=== PATIENT | female | born 1960 | race African-American/Black ===

== ENCOUNTER 2020-05-02 14:32 | Inpatient (IN) | payer MEDICAID ==
[~2020-05-02] VITALS: Ht 162.6 cm; Wt 86.2 kg
[2020-05-02 15:20] VITALS: BP 125/86
[2020-05-02 15:42] LABS: BASOPHILS % (AUTO) 1.5 % (0.0-2.0); EOSINOPHILS % (AUTO) 0.1 % (0.0-3.0); HEMATOCRIT 44.3 % (37.0-47.0); HEMOGLOBIN 14.2 G/DL (12.0-16.0); LYMPHOCYTES % (AUTO) 9.1 % (20.0-45.0); MEAN CORPUSCULAR VOLUME 80 FL (80-99); MONOCYTES % (AUTO) 13.1 % (1.0-10.0); NEUTROPHILS % (AUTO) 76.2 % (45.0-75.0); PLATELET COUNT 282 K/UL (150-450); RED BLOOD COUNT 5.54 M/UL (4.20-5.40); RED CELL DISTRIBUTION WIDTH 12.9 % (11.6-14.8); WHITE BLOOD COUNT 6.7 K/UL (4.8-10.8)
[2020-05-02 15:53] LABS: ANION GAP 11 mmol/L (5-15); BLOOD UREA NITROGEN 9 mg/dL (7-18); CALCIUM 8.4 MG/DL (8.5-10.1); CARBON DIOXIDE 22 MMOL/L (21-32); CHLORIDE 101 MMOL/L (98-107); CREATININE 0.8 MG/DL (0.55-1.30); POTASSIUM 3.3 MMOL/L (3.5-5.1); SODIUM 134 MMOL/L (136-145)
[2020-05-02 15:58] LABS: ALANINE AMINOTRANSFERASE 175 U/L (12-78); ALBUMIN 2.6 G/DL (3.4-5.0); ALBUMIN/GLOBULIN RATIO 0.6 (1.0-2.7); ALKALINE PHOSPHATASE 111 U/L (46-116); ASPARTATE AMINO TRANSFERASE 309 U/L (15-37); BILIRUBIN,TOTAL 0.7 MG/DL (0.2-1.0)
--- NOTE | 2020-05-02 16:40 | Emergency Room Report ---
History of Present Illness General Chief Complaint: Flu Like Symptoms Source: Patient (Lelo Walker) Present Illness HPI 60-year-old female presents to the emergency department complaining of worsening of her generalized weakness and shortness of breath. Patient reports that her symptoms began April 18. Patient states that after no improvement at home she went to [facility] in [place] emergency department on 26 April and was admitted. Patient states that she was just discharged yesterday. Patient reports that they were concerned about some elevated labs but the patient is not sure what they were. She denies chest pain. She does report initial cough. She reports she has had multiple Covid test all of which were negative. She reports chills but denies fevers. She denies past medical history. She reports that she was given Lidoderm patches and antibiotics at [facility]. Patient reports that overnight her symptoms have gotten worse and she called 911 today. (Lelo Walker) Allergies: Coded Allergies: AZITHROMYCIN (Unverified Allergy, Unknown, 05/02/20) COVID-19 Screening Contact w/high risk pt: No Experienced COVID-19 symptoms?: No COVID-19 Testing performed MOLD FORMS BUILDER: No (Lelo Walker) Patient History Past Medical History: see triage record Past Surgical History: none Pertinent Family History: none Now: No Reviewed Nursing Documentation: PMH: Agreed; PSxH: Agreed (Lelo Walker) Nursing Documentation-PMH Past Medical History: No Stated History (Lleo Walker) Review of Systems All Other Systems: negative except mentioned in HPI (Lelo Walker) Physical Exam Vital Signs Date Time Temp Pulse Resp B/P (MAP) Pulse Ox O2 Delivery O2 Flow Rate FiO2 05/02/20 14:24 98.1 125 16 126/82 (97) 98 Room Air 05/02/20 15:20 97 Sp02 EP Interpretation: reviewed, normal General Appearance: no apparent distress, alert, GCS 15, non-toxic Head: normocephalic, atraumatic Eyes: bilateral eye normal inspection, bilateral eye PERRL ENT: hearing grossly normal, normal voice Neck: full range of motion Respiratory: lungs clear, normal breath sounds, no wheezing, other - PT. with difficulty speaking full sentences. Cardiovascular #1: regular rate, rhythm, no edema, normal capillary refill - Slow cap refill/ 3-4 secs Gastrointestinal: normal bowel sounds, non tender, soft Rectal: deferred Genitourinary: normal inspection Musculoskeletal: back normal, normal range of motion, gait/station normal, non- tender Neurologic: alert, motor strength/tone normal, oriented x3, sensory intact, responsive, speech normal Psychiatric: judgement/insight normal Lymphatic: no adenopathy (Lelo Walker) Procedures Critical Care Time Critical Care Time Pt. presentation to the ED mandated critical care. Pt. required immediate intervention to assess the risks and attempt to prevent cardiovascular compromise that could lead to . Critical care time is 60 minutes excluding any reportable procedure. Critical care time included evaluation, multiple reevaluation, looking at old charts, interpreting laborat ory and diagnostic data, discussing case with patient and family and consultants, and charting. (Lelo Walker) Medical Decision Making PA Attestation Dr. Weston Is my supervising Physician whom patient management has been discussed with. (Lelo Walker) Diagnostic Impression: Primary Impression: NSTEMI (non-ST elevated myocardial infarction) Additional Impression: Elevated d-dimer ER Course 60-year-old female presents to the emergency department complaining of worsening of her generalized weakness and shortness of breath. Patient reports that her symptoms began April 18. Patient states that after no improvement at home she went to [facility] in [place] emergency department on 26 April and was admitted. Patient states that she was just discharged yesterday. Patient reports that they were concerned about some elevated labs but the patient is not sure what they were. She denies chest pain. She does report initial cough. She reports she has had multiple Covid test all of which were negative. She reports chills but denies fevers. She denies past medical history. She reports that she was given Lidoderm patches and antibiotics at [facility]. Patient reports that overnight her symptoms have gotten worse and she called 911 today. Ddx considered but are not limited to : MS, MG, guilan barre, MT, drug intoxication, hypovolemia, infection, rhabdomylosis, ETOH, CVA/TIA, NMS, CHF, Seizures, Cardiac outflow obstruction, QT-prolongation, Brugada, or Anemia just to name a few. Vital signs: are WNL, pt. is afebrile H&PE are most consistent with NSTEMI ORDERS: -CBC- unremarkable -CMP -- Elevated LFT -Troponin: 0.236 -D-Dimer: 1.05 -PT: 11.4, - INR: 1.0 -UA EKG: abnormal- Sinus Tachycardia with inverted T wave in ischemic pattern in inferior and anterolateral leads. -COVID -19: Negative -CTA Chest: due to elevated D-Dimer---- PT> Declines IV Contrast. ED INTERVENTIONS: - 325 ASA - NS 500cc IV -Heparin 5000 units bolus. Pt. is not stable for transport at this time. DISPOSITION: at this time pt. will be admitted to Dr. Montoya for NSTEMI Vs PE. Dr. Montoya agreed to admit the pt. and to continue pt. care management. Labs Test 05/02/20 15:11 White Blood Count 6.7 K/UL (4.8-10.8) Red Blood Count 5.54 M/UL (4.20-5.40) Hemoglobin 14.2 G/DL (12.0-16.0) Hematocrit 44.3 % (37.0-47.0) Mean Corpuscular Volume 80 FL (80-99) Mean Corpuscular Hemoglobin 25.7 PG (27.0-31.0) Mean Corpuscular Hemoglobin Concent 32.1 G/DL (32.0-36.0) Red Cell Distribution Width 12.9 % (11.6-14.8) Platelet Count 282 K/UL (150-450) Mean Platelet Volume 7.5 FL (6.5-10.1) Neutrophils (%) (Auto) 76.2 % (45.0-75.0) Lymphocytes (%) (Auto) 9.1 % (20.0-45.0) Monocytes (%) (Auto) 13.1 % (1.0-10.0) Eosinophils (%) (Auto) 0.1 % (0.0-3.0) Basophils (%) (Auto) 1.5 % (0.0-2.0) Prothrombin Time 11.4 SEC (9.30-11.50) Prothromb Time International Ratio 1.0 (0.9-1.1) Activated Partial Thromboplast Time 35 SEC (23-33) D-Dimer 1.05 mg/L FEU (0.00-0.49) Sodium Level 134 MMOL/L (136-145) Potassium Level 3.3 MMOL/L (3.5-5.1) Chloride Level 101 MMOL/L (98-107) Carbon Dioxide Level 22 MMOL/L (21-32) Anion Gap 11 mmol/L (5-15) Blood Urea Nitrogen 9 mg/dL (7-18) Creatinine 0.8 MG/DL (0.55-1.30) Estimat Glomerular Filtration Rate > 60 mL/min (>60) Glucose Level 119 MG/DL (74-106) Calcium Level 8.4 MG/DL (8.5-10.1) Total Bilirubin 0.7 MG/DL (0.2-1.0) Aspartate Amino Transf (AST/SGOT) 309 U/L (15-37) Alanine Aminotransferase (ALT/SGPT) 175 U/L (12-78) Alkaline Phosphatase 111 U/L (46-116) Troponin I 0.236 ng/mL (0.000-0.056) Total Protein 7.2 G/DL (6.4-8.2) Albumin 2.6 G/DL (3.4-5.0) Globulin 4.6 g/dL Albumin/Globulin Ratio 0.6 (1.0-2.7) (Lelo Walker) ER Course I Saw this patient with the PA. I agree that the patient needs to be admitted for further treatment and evaluation. I spoke with . Due to the p atient's elevated troponin and possible PE and elevated D-dimer and EKG changes I do not believe that the patient is stable for transfer at this time. Patient has been started on heparin. VQ scan is pending at the time of admission. (Shala Weston M.D.) EKG Diagnostic Results Troponin ordered: Yes When was troponin ordered?: May 02, 2020 EKG Time: 15:19 Rate: tachycardiac - 104 bpm Rhythm: NSR ST Segments: other - inverted t-waves in inferior and anterolateral leads. No ST elevation. ASA given to the pt in ED: Yes PA Scribe Text This Interpretation was scribed by SHADE Walker. (Lelo Walker) Chest X-Ray Diagnostic Results Chest X-Ray Diagnostic Results : Chest X-Ray Ordered: Yes # of Views/Limited/Complete: 1 View Indication: Shortness of Breath EP Interpretation: Yes SHADE Xray: Interpretation reviewed, by supervising MD, and agrees with findings. Interpretation: no consolidation, no effusion, no pneumothorax Impression: No acute disease Electronically Signed by: Lelo Walker PA-C (Lelo Walker) Last Vital Signs Date Time Temp Pulse Resp B/P (MAP) Pulse Ox O2 Delivery O2 Flow Rate FiO2 05/02/20 15:20 98.1 103 18 125/86 97 Room Air 05/02/20 15:20 97 (Lelo Walker) Disposition: ADMITTED INPATIENT Condition: Serious Referrals: [facility],REFERR[facility] (PCP) Lelo Walker May 02, 2020 16:40 Shala Weston M.D. May 02, 2020 20:36
[2020-05-02] MEDS ORDERED: Omnipaque 350 100ml vial INJ PRN (17:00)
[2020-05-02] MEDS ORDERED: Heparin 5000 units/ml inj IV ONE (17:45)
[2020-05-02] MEDS ORDERED: Heparin 25,000u/D5W 500ml 500 ML IV SCH (17:45)
--- NOTE | 2020-05-02 17:59 | Diagnostic Imaging Report ---
Indication: Chest pain Technique: One view of the chest Comparison: 07/10/2006 Findings: Lungs and pleural spaces are clear. The heart size is normal. No significant change Impression: No acute process
[2020-05-02 18:00] VITALS: BP 131/82
[2020-05-03 01:18] LABS: INR 1.2 (0.9-1.1)
[2020-05-03 01:21] LABS: PARTIAL THROMBOPLASTIN TIME > 150 SEC (23-33)
[2020-05-03] MEDS ORDERED: Heparin 25,000u/D5W 500ml 500 ML IV SCH ×2 (02:30→09:45)
[2020-05-03 08:00] VITALS: BP 120/70
[2020-05-03] MEDS: Aspirin EC 81mg tab ORAL SCH (09:00)
--- NOTE | 2020-05-03 11:45 | History and Physical Report ---
DATE OF ADMISSION: 05/02/2020 HISTORY OF PRESENT ILLNESS: This is a 60-year-old female who came to the hospital with shortness of breath, generalized weakness. The patient is a very poor historian. She states she has been admitted to the [facility] for 5 days from 04/26/2020 to 05/01/2020. She states she has been unwell since late March. She states that she was discharged a few days ago with Mucinex and lidocaine patch. She states she had a completely negative workup but was not told about her diagnoses. The patient is a very poor historian. She denies any previous history except for history of prediabetes many years ago. PAST MEDICAL HISTORY: Prediabetes. PAST SURGICAL HISTORY: Umbilical hernia repair. ALLERGIES: . HOME MEDICATIONS: Mucinex and lidocaine patches. SOCIAL HISTORY: Denies smoking tobacco. Lives at home with family. PHYSICAL EXAMINATION: GENERAL: Reveals a 60-year-old female. VITAL SIGNS: Blood pressure 120/70, heart rate 104, respirations are 20, O2 saturation 98% on room air. HEENT: Unremarkable. CHEST: Clear breath sounds. ABDOMEN: Soft. EXTREMITIES: There is no edema. NEUROLOGIC: Nonfocal. LABORATORY DATA: Lab testing shows normal CBC. BMP notable for troponin 0.234 . AST and ALT are both elevated. Glucose 119, sodium 134, potassium 3.3. Coags show elevated D-dimer 1.05. IMPRESSION: 1. Non-STEMI. 2. Generalized weakness/malaise. 3. Shortness of breath. DISCUSSION: At this time, my suspicion for venous thromboembolic process is low. She is currently asymptomatic from a cardiac standpoint; therefore, we will discontinue heparin drip. Continue other home medications including aspirin. We will follow as legal administrative assistant. We will consult Cardiology. We will need to obtain old records. Abran Montoya M.D. DR: Sarah JOB#: [id number] CC:
[2020-05-03 12:00] VITALS: BP 118/68
[2020-05-03 16:00] VITALS: BP 124/64
--- NOTE | 2020-05-03 18:07 | Cardiology Report ---
APPROVED REPORT EXAM: Two-dimensional and M-mode echocardiogram with Doppler and color Doppler. INDICATION ACF M-Mode DIMENSIONS IVSd1.0 (0.7-1.1cm)Left Atrium (MM)3.1 (1.6-4.0cm) LVDd3.9 (3.5-5.6cm)Aortic Root3.1 (2.0-3.7cm) PWd1.0 (0.7-1.1cm)Aortic Cusp Exc.1.7 (1.5-2.0cm) IVSs1.3 cmEPSS0.8 (>1.0cm) LVDs2.7 (2.5-4.0cm) PWs1.8 cm Other Information Technically limited study due to pt's position. <Conclusion> Normal left ventricular chamber size, systolic function and wall motion to extent visualized. Left ventricular ejection fraction estimated to be 55-60 %. No evidence of left ventricular hypertrophy. Anterior Echo-free space, may be due to pericardial fat or effusion. All other cardiac chamber sizes are within normal limits. Focal aortic valve sclerosis with adequate cusp excursion. Thickened mitral valve leaflets with normal excursion. Mitral annulus and aortic root calcification. Pulmonic valve not well visualized. Normal tricuspid valve structure. Subcostal view unobtainable. IVC at normal size with physiologic collapse. A color flow and spectral Doppler study was performed and revealed: No aortic regurgitation. Trace mitral regurgitation. Mitral diastolic velocities suggest mild diastolic dysfunction (Grade I). Trace tricuspid regurgitation. Tricuspid systolic velocities suggests peak right ventricular systolic pressure of 8 mmHg. No pulmonic regurgitation present.
--- NOTE | 2020-05-03 18:22 | Cardiology Report ---
APPROVED REPORT EKG Measurement Heart [id number] <Conclusion> Sinus tachycardia T wave abnormality, consider inferior ischemia T wave abnormality, consider anterolateral ischemia Abnormal ECG
[2020-05-03 20:00] VITALS: BP 126/70
[2020-05-04] VITALS: BP 123/71
[2020-05-04 04:00] VITALS: BP 121/73
[2020-05-04 07:33] LABS: BASOPHILS % (AUTO) 0.8 % (0.0-2.0); EOSINOPHILS % (AUTO) 0.6 % (0.0-3.0); HEMATOCRIT 42.7 % (37.0-47.0); HEMOGLOBIN 13.6 G/DL (12.0-16.0); LYMPHOCYTES % (AUTO) 8.2 % (20.0-45.0); MEAN CORPUSCULAR VOLUME 83 FL (80-99); MONOCYTES % (AUTO) 19.6 % (1.0-10.0); NEUTROPHILS % (AUTO) 70.9 % (45.0-75.0); PLATELET COUNT 278 K/UL (150-450); RED BLOOD COUNT 5.15 M/UL (4.20-5.40); RED CELL DISTRIBUTION WIDTH 12.7 % (11.6-14.8); WHITE BLOOD COUNT 6.6 K/UL (4.8-10.8)
[2020-05-04 07:42] LABS: ALANINE AMINOTRANSFERASE 123 U/L (12-78); ALBUMIN 2.4 G/DL (3.4-5.0); ALBUMIN/GLOBULIN RATIO 0.5 (1.0-2.7); ALKALINE PHOSPHATASE 104 U/L (46-116); ASPARTATE AMINO TRANSFERASE 208 U/L (15-37); BILIRUBIN,TOTAL 0.6 MG/DL (0.2-1.0); BLOOD UREA NITROGEN 8 mg/dL (7-18); CALCIUM 8.3 MG/DL (8.5-10.1); CARBON DIOXIDE 25 MMOL/L (21-32); CHLORIDE 100 MMOL/L (98-107); CREATININE 0.8 MG/DL (0.55-1.30); POTASSIUM 3.1 MMOL/L (3.5-5.1); SODIUM 135 MMOL/L (136-145)
[2020-05-04 08:00] VITALS: BP 111/68
[2020-05-04] MEDS: Aspirin EC 81mg tab ORAL SCH (09:08)
--- NOTE | 2020-05-04 10:09 | Pulmonology Progress Note ---
Subjective Interval Events: Continues to report chest heaviness Constitutional: Reports: no symptoms HEENT: Repors: no symptoms Respiratory: Reports: no symptoms Cardiovascular: Reports: no symptoms Gastrointestinal/Abdominal: Reports: no symptoms Genitourinary: Reports: no symptoms Neurologic: Reports: no symptoms Allergies: Coded Allergies: AZITHROMYCIN (Unverified Allergy, Unknown, 05/02/20) Objective Last 24 Hour Vital Signs Date Time Temp Pulse Resp B/P (MAP) Pulse Ox O2 Delivery O2 Flow Rate FiO2 05/04/20 08:24 Room Air 05/04/20 04:00 108 05/04/20 04:00 97.6 105 17 121/73 (89) 98 05/04/20 00:00 100 05/04/20 00:00 98.2 103 20 123/71 (88) 98 05/03/20 21:00 Room Air 05/03/20 20:00 97.9 100 16 126/70 (88) 97 05/03/20 20:00 102 05/03/20 19:25 97.8 05/03/20 16:00 109 05/03/20 16:00 97.8 105 18 124/64 (84) 99 05/03/20 12:00 97.8 102 18 118/68 (85) 99 05/03/20 12:00 112 Intake and Output 05/03/20 05/04/20 19:00 07:00 Intake Total 360 ml 500 ml Balance 360 ml 500 ml Intake Oral 360 ml 500 ml # Voids 3 3 # Bowel Movements 2 General Appearance: no acute distress HEENT: normocephalic Respiratory: chest wall non-tender, lungs clear Cardiovascular: normal peripheral pulses Abdomen: normal bowel sounds Microbiology Date/Time Source Procedure Growth Status 05/02/20 15:15 Nasopharynx SARS-CoV-2 RdRp Gene Assay - Final Complete Laboratory Tests 05/04/20 05:58: White Blood Count 6.6, Red Blood Count 5.15, Hemoglobin 13.6, Hematocrit 42.7, Mean Corpuscular Volume 83, Mean Corpuscular Hemoglobin 26.4L, Mean Corpuscular Hemoglobin Concent 31.8L, Red Cell Distribution Width 12.7, Platelet Count 278, Mean Platelet Volume 7.6, Neutrophils (%) (Auto) 70.9, Lymphocytes (%) (Auto) 8.2L, Monocytes (%) (Auto) 19.6H, Eosinophils (%) (Auto) 0.6, Basophils (%) (Auto) 0.8, Sodium Level 135L, Potassium Level 3.1L, Chloride Level 100, Carbon Dioxide Level 25, Blood Urea Nitrogen 8, Creatinine 0.8, Estimat Glomerular Filtration Rate > 60, Glucose Level 111H, Calcium Level 8.3L, Magnesium Level 2.0, Total Bilirubin 0.6, Aspartate Amino Transf (AST/SGOT) 208H, Alanine Aminotransferase (ALT/SGPT) 123H, Alkaline Phosphatase 104, Troponin I 0.178H, Total Protein 6.8, Albumin 2.4L, Globulin 4.4, Albumin/Globulin Ratio 0.5L Current Medications Medications (Trade) Dose Ordered Sig/Denise Route PRN Reason Start Time Stop Time Status Last Admin Dose Admin Acetaminophen (Tylenol) 650 mg Q4H PRN ORAL Pain Scale 1-3/ Temp >100.4F 05/02/20 23:45 06/01/20 23:44 05/03/20 18:55 Aspirin (Ecotrin) 81 mg DAILY ORAL 05/03/20 09:00 06/17/20 08:59 05/04/20 09:08 Iohexol (Omnipaque 350 100ml) 100 ml NOW PRN INJ Radiology Procedure 05/02/20 17:00 05/04/20 16:59 Ondansetron HCl (Zofran) 4 mg Q6H PRN IVP Nausea & Vomiting 05/02/20 23:45 06/01/20 23:44 Potassium Chloride (K-Dur) 40 meq ONCE ORAL 05/04/20 09:15 05/04/20 10:15 05/04/20 09:27 Assessment/Plan Assessment/Plan IMPRESSION: 1. Non-STEMI. 2. Generalized weakness/malaise. 3. Shortness of breath. DISCUSSION: At this time, my suspicion for venous thromboembolic process is low. She is continuing to report chest pain. Tropnins still elevated Will resume anticaogulation Will request tranasfer for heart cath [place] Omar Syed MD May 04, 2020 10:09
--- NOTE | 2020-05-04 10:10 | General Progress Note ---
Advance Care Planning Advance Care Planning Advance Care Planning Date of Discussion: 05/04/20 A [id number] discussion with the patient regarding the patient's advanced care planning took place during this hospitalization on the above date. The discussion included the explanation and discussion of advance directives and associated forms/documents, as well as the patient's current code status. We also discussed at length the patient's medical conditions (both acute and chronic), general prognosis, treatment options, and goals of care. The following summarizes the discussion:Full code; needs heart cath. Advance Care Planning/Goals of Care: - Will attempt to fill out an AD and/or POLST with the patient prior to discharge, if not already completed - Continue current evaluation and management of any acute and chronic medical issues - Will continue to support the patient/family - Will continue to discuss both short- and long-term goals of care DPOA-HC/Surrogate Decision Maker: None currently appointed Code Status: Full Code Advanced Care Planning Forms/Documents Completed: Deferred until later encounter A total of 31 minutes was spent on this discussion, including counseling, answering questions, and completing, if any, pertinent advanced care planning forms/documents. Time of note may not reflect time of encounter. Abran Montoya MD May 04, 2020 10:10
[2020-05-04] MEDS ORDERED: LOVENOX10 M3 SUBQ (10:11)
[2020-05-04] MEDS ORDERED: ASPIRIN EC81 MG ORAL (10:11)
[2020-05-04] MEDS: Enoxaparin 100mg Inj SUBQ SCH ×2 (10:54→21:00)
[2020-05-04 12:00] VITALS: BP 123/80
--- NOTE | 2020-05-04 14:45 | Consultation ---
DATE OF CONSULTATION: 05/04/2020 INTERVENTIONAL CARDIOLOGY CONSULTATION NOTE SUPERVISING PHYSICIAN: Pritesh Collado MD. LOCATION: Telemetry. CHIEF COMPLAINT: Chest pain. HISTORY OF PRESENT ILLNESS: This is a 60-year-old black female, transferred from [facility] yesterday with complaints of chest pain and shortness of breath. The patient has no history of prior TN or PCI, no known diagnosis of congestive heart failure. On exam today, the patient is still complaining of chest pain, chest pressure, exertional, relieved by rest and shortness of breath, not exacerbated by lying flat. Troponin 0.2 x2, 0.17 this morning. EKG, sinus rhythm, T-wave inversions. No ST elevations or depressions. The patient had been on heparin drip at [facility] that will be restarted today. The patient is a poor historian. She denies taking medications for any chronic illnesses. Per EMR, she is prediabetic, vitals stable. Laboratories remarkable for hypokalemia, troponin elevation, AST and ALT elevation. PAST MEDICAL HISTORY: Prediabetes. PAST SURGICAL HISTORY: Umbilical hernia repair. ALLERGIES: No known drug allergies. HOME MEDICATIONS: None. SOCIAL HISTORY: Nonsmoker. Lives at home with family. Denies alcohol or street drug use or abuse. REVIEW OF SYSTEMS: Complains of chest pain, shortness of breath. Denies nausea, vomiting, fever, chills, abdominal pain, or active bleeding. Denies leg edema. LABORATORY REVIEW: As per HPI above. IMAGING REVIEW: Echocardiogram, ejection fraction 55%. No significant valvular disease. EKG, sinus rhythm, T-wave inversions, no ST elevation or depression. Chest x-ray, clear lungs. PHYSICAL EXAMINATION: VITAL SIGNS: Blood pressure 120/74, heart rate 80, respiratory rate 18, and O2 saturation 98% on room air. GENERAL: No acute distress, calm, cooperative. HEENT: EOMs intact. Nonicteric. NECK: No JVD. No bruit. CHEST: Symmetrical expansion. Clear to auscultation bilaterally. CARDIOVASCULAR: Rate and rhythm regular. S1 and S2. No significant murmur on auscultation. No rub. No gallop. ABDOMEN: Soft, nondistended. EXTREMITIES: No significant edema. Palpable pedal pulses. Warm. No venous stasis skin changes. NEUROLOGIC: Grossly nonfocal. ASSESSMENT AND PLAN: 1. NSTEMI. 2. Chest pain, exertional. 3. Troponinemia. Troponin 0.2 x2, 0.17 this morning. 4. Shortness of breath. 5. Heart failure, preserved ejection fraction. EF 55%. Mild diastolic dysfunction, compensated. Chest x-ray, clear lungs. 6. Prediabetes. PLAN: The patient will be restarted on heparin drip. Transfer for likely cardiac catheterization. Currently, vitals are stable. The patient is still complaining of chest pain and with troponin elevation, not a candidate for Lexiscan at this facility. We will continue to monitor prior to transfer and follow up with Cardiology. The above assessment and plan was discussed with Dr. Collado and agreed to as above. Pritesh Collado M.D. Isabel Suggs PA-C DR: BECCA JOB#: [id number] CC:
[2020-05-04 16:00] VITALS: BP 126/68
[2020-05-04 20:00] VITALS: BP 115/71
--- NOTE | 2020-05-06 08:37 | Discharge Summary ---
Discharge Summary Discharge Summary _ DATE OF ADMISSION: 05/02/2020 DATE OF DISCHARGE: 05/04/2020 DISCHARGED BY: Dr. Montoya REASON FOR ADMISSION: 60 years old female presented to emergency department with shortness of breath and generalized weakness. Symptoms started more than a week ago. Patient was hospitalized at [facility]. Patient was not sure for what she was treated , but stated that she got some antibiotic . She initially declined chest pain . She reported initial cough . She reported that she had multiply Covid testing which were negative. Patient denied past medical history . Upon evaluation patient had vital signs revealed tachycardia with heart rate 125 , otherwise patient was afebrile and pulse oximetry was stable on room air. Troponin elevated 0.236. EKG revealed inverted T waves in inferior and anterolateral leads. No ST elevation. Chest x-ray revealed no acute cardiopulmonary pathology. Stable hemoglobin and hematocrit , no leukocytosis. Potassium 3.3. Stable electrolytes her electrolytes and renal parameters Glucose 119 D-dimer .1.05. Rapid COVID-19 was negative. Noted elevated LFT : AST 309 , ALT 175. Patient declined IV contrast to perform CTA of the chest. In emergency department patient receive IV fluids and started on full anticoagulation. Patient admitted to telemetry floor for further management. CONSULTANTS: nurse receptionist Dr. Collado [facility]SE: Patient admitted to telemetry floor. Potassium was replaced. Serial troponin remained elevated: second troponin 0.219, the last troponin 0.178. Echocardiogram revealed preserved ejection fraction 55 to 60%. No evidence of left ventricular hypertrophy. Right ventricular systolic pressure of 8. Mild diastolic dysfunction grade 1. Planning And Analysis Manager recommended continue full anticoagulation with heparin drip and transfer for cardiac catheterization to a higher level of care . Plan later nuclear stress test when troponin down and free from the chest pain. Potassium was replaced. Supportive care provided . Pain management was addressed . Pulse oximetry remained stable on room air. LFT with a small trend down . Transfer was arranged to [facility] for cardiac catheterization. Patient was stable for transfer via [facility] ambulance. FINAL DIAGNOSES: NSTEMI Chest pain, exertional Heart failure with pEF and mild diastolic dysfunction, compensated Hypokalemia DISCHARGE MEDICATIONS: See Medication Reconciliation list. DISCHARGE INSTRUCTIONS: Patient was transferred to [facility] via [facility] ambulance for cardiac catheterization as per insurance. I have been assigned to dictate discharge summary for this account. I was not involved in the patient's management. Kamryn Hendrix NP May 06, 2020 08:36
== END 2020-05-04 22:17 | disposition short-term general hospital (02) | DRG 190 ==
LOC: EDBD 14:32 → EMR 14:55 → EDBEDREQ 16:11 → 2E 18:35 → EDBEDREQ 20:23
DX: I21.4 Non-ST elevation (NSTEMI) myocardial infarction (principal); R07.89 Other chest pain; I50.30 Unspecified diastolic (congestive) heart failure; R73.03 Prediabetes; Z88.1 Allergy status to other antibiotic agents
CPT/HCPCS: 36415; 71045; 80053; 83735; 84484; 85025; 85379; 85610; 85730; 93005; 93306; 96365; 96366; 96375; 99291; J8499; U0002